=== PATIENT | female | born 1995 | race Asian ===

== ENCOUNTER 2017-11-14 20:46 | Emergency (ER) | payer OTHER ==
[~2017-11-14] VITALS: Ht 144.8 cm; Wt 46.7 kg
[2017-11-14 21:00] VITALS: BP 121/76
--- NOTE | 2017-11-14 21:19 | Emergency Room Report ---
History of Present Illness General Chief Complaint: Laceration Source: Patient Present Illness HPI This is a 22-year-old female who is right-hand dominant. She presents with a skin avulsion/laceration to her left index finger. She was cleaning the dishes and a broken ceramic cup cause a laceration. Bleeding stopped. No other injury. Denies any other trauma. Pain is throbbing in nature. This occurred just prior to arrival. Nothing made it better. Nothing made it worse. Allergies: Coded Allergies: No Known Allergies (Unverified , 11/14/17) Patient History Past Medical History: see triage record, old chart reviewed Past Surgical History: none Pertinent Family History: none Social History: Denies: smoking Last Menstrual Period: 2 weeks ago Now: No Immunizations: other Reviewed Nursing Documentation: PMH: Agreed, PSxH: Agreed Nursing Documentation-PMH Past Medical History: No Stated History Review of Systems Eye: Denies: eye pain, blurred vision ENT: Denies: ear pain, nose congestion, throat swelling Respiratory: Denies: cough, shortness of breath Cardiovascular: Denies: chest pain, palpitations Gastrointestinal: Denies: abdominal pain, diarrhea, nausea, vomiting Musculoskeletal: Denies: back pain, joint pain Skin: Denies: rash Neurological: Denies: headache, numbness Endocrine: Denies: increased thirst, increased urine Hematologic/Lymphatic: Denies: easy bruising All Other Systems: negative except mentioned in HPI Physical Exam Vital Signs Date Time Temp Pulse Resp B/P (MAP) Pulse Ox O2 Delivery O2 Flow Rate FiO2 11/14/17 20:56 98.7 70 18 121/76 99 Room Air 98.8 vitals normal Sp02 EP Interpretation: reviewed, normal General Appearance: well appearing, no apparent distress, alert Head: normocephalic, atraumatic Eyes: bilateral eye PERRL, bilateral eye EOMI ENT: hearing grossly normal, normal pharynx Neck: full range of motion, supple, no meningismus Respiratory: chest non-tender, lungs clear, normal breath sounds Cardiovascular #1: regular rate, rhythm, no murmur Gastrointestinal: normal bowel sounds, non tender, no mass, no organomegaly, no bruit, non-distended Musculoskeletal: back normal, gait/station normal, normal range of motion, other - Left index finger: On the radial aspect of the index finger there is a 3 mm skin avulsion. No active bleeding. No foreign body. No tendon laceration. Full range of motion of MCP, PIP, and DIP joint. Psychiatric: mood/affect normal Skin: warm/dry Medical Decision Making Diagnostic Impression: Primary Impression: Avulsion of skin of finger Qualified Codes: S61.209A - Unspecified open wound of unspecified finger without damage to nail, initial encounter ER Course Patient with a skin avulsion of the index finger. I did a wound dressing. No active bleeding. No foreign body. We'll resume infection. Nothing to be sutured. We'll discharge home. Last Vital Signs Date Time Temp Pulse Resp B/P (MAP) Pulse Ox O2 Delivery O2 Flow Rate FiO2 11/14/17 20:56 98.7 70 18 121/76 99 Room Air 98.8 Status: improved Disposition: HOME, SELF-CARE Condition: Stable Patient Instructions: Nonsutured Laceration Care Additional Instructions: Keep wound clean. Follow-up with your doctor in 7 days. Return if worse. KHURRAM ALY M.D. Nov 14, 2017 21:19
[2017-11-14 21:23] VITALS: BP 121/76
== END 2017-11-14 21:30 | disposition home or self-care (01) ==
LOC: EMR 21:30
DX: S61.211A Laceration without foreign body of left index finger without damage to nail, initial encounter (principal); W25.XXXA Contact with sharp glass, initial encounter; Y93.G1 Activity, food preparation and clean up; Y92.9 Unspecified place or not applicable
CPT/HCPCS: 99283